=== PATIENT | female | born 2005 | race Caucasian/White ===

== ENCOUNTER 2025-01-31 07:13 | Day surgery (SDC) | payer BC ==
[~2025-01-31 07:13] MED LIST: SODIUM CHLORIDE 0.9% 1,000 ML IV SCH
[2025-01-31 07:54] VITALS: BP 101/72; PULSE 113; RESP 16; TEMP 96.9
[2025-01-31] MEDS: SODIUM CHLORIDE 0.9% 500 ML 500 ML IV ONE (07:54)
--- NOTE | 2025-01-31 10:24 | P.EPPROC ---
- EP Procedure Note Electrophysiology Procedure Note: Gnosis Recurrent presyncope 12 EKG shows resting sinus tachycardia normal HI narrow QRS normal ST segments normal QT interval Tilt table test per protocol Baseline blood pressure 110/63 mmHg, baseline heart rate 86 beats a minute Patient was tilted upright on maculas 70 degrees per protocol No significant change in blood pressure However there was an immediate increase in her heart rate 134 beats a minute Subsequently heart rate ranged from 120 to 130 bpm during the procedure she felt hot and dizzy as well as short of breath. There was a brief drop in blood pressure to 94/48 mmHg, when she felt really hot, but this resolved quickly There is a second. When the blood pressure dropped to 83 mmHg systolic without syncope but she felt lightheaded When she was laid supine her heart rate improved Impression Sinus tachycardia and twelve-lead EKG Postural tachycardia with transient periods of neurocardiogenic phenomena
== END 2025-01-31 10:28 | disposition home or self-care (01) ==
LOC: CATHEP 07:13
PROVIDERS: ATTEND Internal Medicine Clinical Cardiac Electrophysiology
DX: R55 Syncope and collapse (principal); G90.A Postural orthostatic tachycardia syndrome [POTS]; R00.2 Palpitations; R42 Dizziness and giddiness; G43.909 Migraine, unspecified, not intractable, without status migrainosus; E55.9 Vitamin D deficiency, unspecified
CPT/HCPCS: 81025; 93660